=== PATIENT | male | born 1955 | race African-American/Black ===

== ENCOUNTER 2019-04-11 14:21 | Emergency (ER) | payer OTHER ==
[~2019-04-11] VITALS: Ht 180.3 cm; Wt 167.8 kg
[2019-04-11 14:32] VITALS: BP 144/79
--- NOTE | 2019-04-11 14:47 | NUR ---
XRAY AT BEDSIDE.
[2019-04-11] MEDS ORDERED: ACETAMINOPHEN EXTRA STRENGTH 500 MG TAB PO ONE (14:50)
--- NOTE | 2019-04-11 14:50 | NUR ---
PA AT BEDSIDE.
--- NOTE | 2019-04-11 14:55 | NUR ---
BIB SELF W/ C/O INTERMITTENT "BURNING URINATION X 3 YRS, "LT SHOULDER PAIN X 1 YR". DENIES RECENT INJURY . PT ALERT ,AWAKE , AMBULATORY WITH STEADY GAIT ON SHORT WALK USES POWER WHEELCHAIR FOR MOBILITY, NO LIMITATION ON MOVEMENT ON LEFT SHOULDER ,EQUAL REGULAR RADIAL PULSE. PMHX DENIES ANY ILLNESS MEDS ,DENIES ANY INTAKE OF MEDS.
[2019-04-11 16:24] VITALS: BP 145/79
--- NOTE | 2019-04-11 16:24 | NUR ---
Patient discharged with v/s stable. Written and verbal after care instructions given and explained regarding sprain and uti. Patient alert, oriented and verbalized understanding of instructions. Ambulatory with steady gait at short distance uses powered wheelchair. All questions addressed prior to discharge. ID band removed. Patient advised to follow up with PMD. Rx of acetaminophen, phenazopyridine hcl ,nitrofuratoin given. Patient educated on indication of medication including possible reaction and side effects. Opportunity to ask questions provided and answered.
--- NOTE | 2019-04-18 12:22 | NUR ---
PT CALLED BACK STATING HIS URINARY SYMPTOMS STILL PERSIST ALTHOUGH HE TOOK PRESCRIBED MEDICATION MACROBID WHICH INDENTIFIES BEING SENSITIVE TO ENTEROCOCCUS FAECALIS--- PT STATING HE WANTS ANOTHER ANTIBIOTIC TO BE PHONED IN TO HIS PHARMACY WAS UPDATED ON PT'S REQUEST. PT WAS NOTIFIED FELT HE SHOULD SEE HIS PMD FOR SPECIALIST REFERRAL 0R RETURN FOR FURTHER EVAL. OTHER COMPLICATIONS MAYBE EXISTING WHICH SHE IS NOT ABLE TO DX OVER THE PHONE
== END 2019-04-11 16:24 | disposition home or self-care (01) ==
LOC: MED 14:21
DX: N39.0 Urinary tract infection, site not specified (principal); M25.512 Pain in left shoulder; G89.29 Other chronic pain
CPT/HCPCS: 73030; 81002; 87086; 87186; 99284; Q0092

== ENCOUNTER 2020-03-03 18:27 | Emergency (ER) | payer OTHER ==
[~2020-03-03] VITALS: Ht 180.3 cm; Wt 163.3 kg
[2020-03-03 18:32] VITALS: BP 147/103
[2020-03-03 19:21] LABS: APPEARANCE,URINE CLOUDY (CLEAR); BILIRUBIN,URINE 1+ (NEGATIVE); BLOOD, URINE 2+ (NEGATIVE); COLOR,URINE YELLOW (YELLOW); LEUKOCYTE ESTERASE ,URINE 3+ (NEGATIVE); NITRITE, URINE NEGATIVE (NEGATIVE); PH,URINE 8.5 (5.0-9.0); UGLUCOSE NEGATIVE (NEGATIVE)
[2020-03-03 20:53] VITALS: BP 144/98
== END 2020-03-03 20:53 | disposition home or self-care (01) ==
LOC: MED 18:27
DX: N39.0 Urinary tract infection, site not specified (principal)
CPT/HCPCS: 81001; 87086; 99283

== ENCOUNTER 2020-08-13 21:06 | Emergency (ER) | payer OTHER ==
[~2020-08-13] VITALS: Ht 180.3 cm; Wt 163.3 kg
[2020-08-13 21:14] VITALS: BP 148/95
--- NOTE | 2020-08-13 21:20 | NUR ---
Tran avendano in [facility] - 08/13/20 at 2121 by [email or web address] PT TO AWAIT IN JAMEE
--- NOTE | 2020-08-13 21:49 | NUR ---
PATIENT BIB SELF FOR C/O "UTI" STATING "I HAVE BURNING AND FREQUENCY." PATIENT STATING "I SEE A UROLOGIST AT [facility] AND I USUALLY CATH MYSELF, BUT I RAN OUT OF SUPPLIES AND HAVE BEEN USING THE SAME CATH SO I THINK THATS WHY I HAVE A UTI." A & O X4. PATIENT ALSO REPORTS "I HAVE CHRONIC PAIN AND I AM SEEKING PAIN MEDICATIONS. I ALSO HAVE A HEEL SPUR, CAN I HAVE A REFERRAL FOR THAT?" SKIN IS WARM, DRY AND INTACT. PATIENT DENIES SOB, CP, FEVER, CHILLS. SEE COMPLETE ASSESSMENT FOR FURTHER DETAILS. MED HX: "CHRONIC PAIN, BIPOLAR, DIVERTICULUM BLADDER ALLERGIES: NKA
--- NOTE | 2020-08-13 22:02 | NUR ---
ERMD AT BEDSIDE.
[2020-08-13] MEDS ORDERED: HYDROcodone/APAP 5/325 MG 1 TAB TAB PO ONE (22:05)
[2020-08-13 22:16] LABS: APPEARANCE,URINE CLOUDY (CLEAR); BILIRUBIN,URINE NEGATIVE (NEGATIVE); BLOOD, URINE 3+ (NEGATIVE); COLOR,URINE YELLOW (YELLOW); LEUKOCYTE ESTERASE ,URINE 2+ (NEGATIVE); NITRITE, URINE NEGATIVE (NEGATIVE); UGLUCOSE NEGATIVE (NEGATIVE)
--- NOTE | 2020-08-13 22:25 | NUR ---
MADE ERMD AWARE THAT PATIENT WAS ABLE TO PROVIDE UA SAMPLE VIA VOID. PER ERMD D/C STRAIGHT CATH ORDER.
--- NOTE | 2020-08-13 22:35 | NUR ---
Patient is currently ambulatory with steady gait, able to walk unassisted with walker. Positive gag reflex. Alert and oriented. Is not driving self for discharge out of facility. NADR to [place] 5-325 MG.
[2020-08-13 22:37] LABS: RBC,URINE 20-50 /HPF (0-5)
[2020-08-13 22:38] LABS: WBC,URINE TOO MANY TO COUNT /HPF (0-5)
[2020-08-13] MEDS ORDERED: CEPH500C16 PO (22:44)
[2020-08-13] MEDS ORDERED: cephALEXin 500 MG CAP PO ONE (22:45)
[2020-08-13 22:47] VITALS: BP 148/95
== END 2020-08-13 22:47 | disposition home or self-care (01) ==
LOC: MED 21:06
DX: N39.0 Urinary tract infection, site not specified (principal); Z79.899 Other long term (current) drug therapy
CPT/HCPCS: 81001; 87086; 99283

== ENCOUNTER 2020-09-24 16:07 | Emergency (ER) | payer OTHER ==
[~2020-09-24] VITALS: Ht 180.3 cm; Wt 108.9 kg
[2020-09-24 16:07] VITALS: BP 124/74
[~2020-09-24 16:07] MED LIST: CEPH500C16 PO
== END 2020-09-24 18:55 | disposition left against medical advice (07) ==
LOC: MED 16:07
DX: R53.1 Weakness (principal); Z53.21 Procedure and treatment not carried out due to patient leaving prior to being seen by health care provider

== ENCOUNTER 2022-02-04 01:25 | Inpatient (IN) | payer OTHER ==
[~2022-02-04] VITALS: Ht 175.3 cm; Wt 116.6 kg
[2022-02-04 01:26] VITALS: BP 145/99
--- NOTE | 2022-02-04 01:26 | NUR ---
RT AT BEDSIDE FOR ASSESSMENT
--- NOTE | 2022-02-04 01:26 | NUR ---
PT BIBA ALS ER BED 10
--- NOTE | 2022-02-04 01:30 | NUR ---
RT CALLED TO BEDSIDE. PT BIBA SATING 100% ON NRB. PT SWITCHED TO NASAL CANNULA 3L, SATING 94%. PT BREATH SOUNDS ARE CLEAR. NURSE AT BEDSIDE.
--- NOTE | 2022-02-04 01:34 | NUR ---
Dr. Hay at bedside examining pt.
--- NOTE | 2022-02-04 01:34 | NUR ---
SHANI PAYTON AT BEDSIDE
--- NOTE | 2022-02-04 02:01 | NUR ---
phlebotomy technician at bedside.
--- NOTE | 2022-02-04 02:07 | NUR ---
EKG done and given to Dr. Hay
--- NOTE | 2022-02-04 02:08 | NUR ---
NC rasied to 6l/min. O2 saturation at 91%.
[2022-02-04 02:28] LABS: BASOPHILS # (AUTO) 0.1 K/uL (0.00-0.22); BASOPHILS % (AUTO) 0.6 % (0.0-2.0); EOSINOPHILS # (AUTO) 0.2 K/uL (0-0.4); EOSINOPHILS % (AUTO) 2.4 % (0.0-4.0); HEMATOCRIT 38.9 % (36-52); HEMOGLOBIN 12.7 g/dL (12.0-18.0); LYMPHOCYTES # (AUTO) 1.8 K/uL (2.0-11.5); LYMPHOCYTES % (AUTO) 19.4 % (20.5-51.1); MEAN CORPUSCULAR HEMOGLOBIN 28 pg (27-31); MEAN CORPUSCULAR HGB CONC 33 g/dL (33-37); MEAN CORPUSCULAR VOLUME 87.2 fL (80-94); MONOCYTES # (AUTO) 0.8 K/uL (0.8-1.0); MONOCYTES % (AUTO) 8.5 % (1.7-9.3); NEUTROPHILS # (AUTO) 6.2 K/uL (1.8-7.7); NEUTROPHILS % (AUTO) 69.1 % (42.2-75.2); PLATELET COUNT (AUTO) 275 K/uL (140-450); RED BLOOD CELL COUNT(AUTO) 4.46 MIL/uL (4.20-6.10); RED CELL DISTRIBUTION WIDTH 14.7 % (11.6-13.7)
[2022-02-04 02:31] LABS: PROTHROMBIN TIME 10.9 secs (10.8-13.4)
[2022-02-04 02:36] LABS: ALBUMIN 2.8 g/dL (3.4-5.0); ANION GAP 13.4 (8-16); CARBON DIOXIDE 24.6 mmol/L (21-32); CREATININE 1.4 mg/dL (0.6-1.3); TOTAL BILIRUBIN 0.4 mg/dL (0.0-1.0)
--- NOTE | 2022-02-04 02:42 | NUR ---
Pt in bed resting with no s/s of distress. No n/v. No chest pain. No fever. Pt on NC at 6L/min and O2 saturation is at 96%, other vitals stable. Pt has no c/o and states he feels better due to originally coming in with sob. Pt hs vaccinated with [employer]. Pt is A&Ox4. Skin intact. IV intact with no infiltration noted. Has hx of HTN, COPD, CHF, DM, and has bilateral lower extremity edema. NKA. Uses wheelchair at home and was brought in by ambulance ALS. Safety checks done and bed is in lowest position.
--- NOTE | 2022-02-04 03:01 | NUR ---
PT TO CT
--- NOTE | 2022-02-04 04:49 | NUR ---
Covid swab done and sent to lab.
[2022-02-04] MEDS ORDERED: ACETAMINOPHEN 325 MG TAB PO PRN (04:50)
[2022-02-04] MEDS ORDERED: HYDROcodone/APAP 5/325 MG 1 TAB TAB PO PRN (04:50)
[2022-02-04] MEDS ORDERED: LORazepam 2 MG/ML VIAL IVP PRN (04:50)
[2022-02-04] MEDS ORDERED: ALBUTEROL 0.083% 2.5 MG/3 ML NEBU INH PRN (04:50)
[2022-02-04] MEDS ORDERED: MORPHINE SULFATE 2 MG/ML SYR IVP PRN (04:50)
[2022-02-04] MEDS ORDERED: ONDANSETRON 4 MG/2 ML VIAL IVP PRN (04:50)
--- NOTE | 2022-02-04 05:02 | NUR ---
Belonging List completed.
--- NOTE | 2022-02-04 11:56 | NUR ---
PATIENT HAS BEEN SCREENED AND CATEGORIZED MODERATE NUTRITION RISK. PATIENT WILL BE SEEN WITHIN 3-5 DAYS OF ADMISSION. 02/07/2210/20/[address]
--- NOTE | 2022-02-04 14:05 | NUR ---
admitting md at bedside
[2022-02-04] MEDS ORDERED: APIXABAN 2.5 MG TAB PO SCH (15:00)
[2022-02-04 16:00] VITALS: BP 132/70
--- NOTE | 2022-02-04 17:52 | NUR ---
pt requesting to leave ama at this time
--- NOTE | 2022-02-04 18:01 | NUR ---
PT REQUESTING TO LEAVE AMA, PAGED DR BLANK TO MAKE AWARE.
--- NOTE | 2022-02-04 18:16 | NUR ---
SPOKE TO DR BRAVO, STATES WILL ORDER BLOOD THINNER AND SEND TO HIS PHARMACY. PT MADE AWARE. PT REQUESTING UBER HOME, SPOKE TO VANESSA [employer]GEANT STATES WE ARE UNABLE TO PROVIDE AN UBER D/T PT AMA. PT STATES IT IS OUR RESPONSIBLITY TO FIND HIM A RIDE. PT REQUESTING TO SPEAK TO A PT ADVOCATE. V[employer]ESSA [employer] ALERTED AND MADE AWARE.
--- NOTE | 2022-02-04 18:44 | NUR ---
SPOKE TO VANESSA GTZGI TECHNICIAN ORDERED UBER FOR PT . PT MADE AWARE.
[2022-02-04] MEDS ORDERED: APIX5TAB PO (18:46)
--- NOTE | 2022-02-04 18:57 | NUR ---
PT TAKEN OUT VIA WC. PT SIGNED AMA PAPERWORK
== END 2022-02-04 18:30 | disposition left against medical advice (07) | DRG 133 ==
LOC: MED 01:25 → MTU 04:59
PROVIDERS: ADMIT Student in an Organized Health Care Education/Training Program; ATTEND Student in an Organized Health Care Education/Training Program
DX: J96.01 Acute respiratory failure with hypoxia (principal); I26.99 Other pulmonary embolism without acute cor pulmonale; N17.9 Acute kidney failure, unspecified; E66.9 Obesity, unspecified; E78.5 Hyperlipidemia, unspecified; J44.9 Chronic obstructive pulmonary disease, unspecified; Z20.822 Contact with and (suspected) exposure to COVID-19; I10 Essential (primary) hypertension; R53.81 Other malaise; Z99.3 Dependence on wheelchair; Z86.711 Personal history of pulmonary embolism; Z79.01 Long term (current) use of anticoagulants; Z68.38 Body mass index [BMI] 38.0-38.9, adult
CPT/HCPCS: 36415; 71275; 80053; 83880; 84484; 85025; 85610; 85730; 93005; 96372; 99291; Q9967